=== PATIENT | female | born 1980 | race Caucasian/White ===

== ENCOUNTER 2016-12-11 07:38 | Day surgery (SDC) | payer OTHER ==
[~2016-12-11] VITALS: Ht 160 cm; Wt 85.7 kg
[2016-12-11] MEDS ORDERED: IV RINGERS,LACTATED 1000ML 1,000 ML IV SCH (07:55)
[2016-12-11] MEDS ORDERED: HYDROmorphone 2 MG/ML VIAL IV PRN (08:00)
[2016-12-11] MEDS ORDERED: ONDANSETRON PF 4 MG/2 ML VIAL. IV PRN (08:00)
[2016-12-11] MEDS ORDERED: PROCHLORPERAZINE 10 MG/2 ML VIAL. IV PRN (08:00)
[2016-12-11] MEDS ORDERED: MORPHINE SULFATE 4 MG/ML DISP.SYRIN. IV PRN (08:00)
[2016-12-11] MEDS ORDERED: fentaNYL PF VIAL 100 MCG/2 ML VIAL IV PRN ×2 (08:00)
[2016-12-11] MEDS ORDERED: LIDOCAINE 1% PF 2 ML VIAL. ID PRN (08:00)
[2016-12-11] MEDS ORDERED: IV RINGERS,LACTATED 1000ML 1,000 ML IV ONE (08:15)
[2016-12-11] MEDS ORDERED: MIDAZOLAM HCL/PF 2 MG/2 ML VIAL. ONE (08:41)
[2016-12-11] MEDS ORDERED: LIDOCAINE 2% PF Vial for OR 5 ML VIAL. ONE (08:42)
[2016-12-11] MEDS ORDERED: fentaNYL PF VIAL 100 MCG/2 ML VIAL ONE (08:42)
[2016-12-11] MEDS ORDERED: PROPOFOL 20 ML IV ONE (08:42)
[2016-12-11] MEDS ORDERED: DEXAMETHASONE SOD PHOS 20 MG/5 ML VIAL. ONE (08:42)
[2016-12-11] MEDS ORDERED: ONDANSETRON PF 4 MG/2 ML VIAL. ONE (08:42)
[2016-12-11] MEDS ORDERED: CLINDAMYCIN 900MG PREMIX 50 ML IV ONE (09:00)
[2016-12-11] MEDS ORDERED: SUCCINYLCHOLINE 200 MG/10 ML VIAL. ONE (09:03)
[2016-12-11] MEDS ORDERED: ROCURONIUM 100 MG/10 ML VIAL. ONE (09:04)
[2016-12-11 09:59] LABS: NEG OBC UR NEG; POS OBC UR POS
[2016-12-11] MEDS ORDERED: NEOSTIGMINE 10 MG/10 ML VIAL. ONE (10:14)
[2016-12-11] MEDS ORDERED: KETOROLAC 30 MG/ML INJ FOR OR. INJ ONE (10:14)
[2016-12-11] MEDS ORDERED: GLYCOPYRROLATE 1 MG/5 ML VIAL. ONE (10:15)
--- NOTE | 2016-12-11 10:40 | PDOC ---
BRIEF OPERATIVE NOTE Pre-Op Diagnosis Sterilization Post-Op Diagnosis Same Procedure Performed Essure Surgeon Dr. Mccall Anesthesia Type: General Blood Loss less than 5 ml Specimens Obtained none Findings nml size uterus, nml fallopian tube ostia Complications none BRIE MCCALL Jr, MD Dec 11, 2016 10:40
--- NOTE | 2016-12-11 10:41 | DISCH ---
DISCHARGE INSTRUCTIONS Condition on Discharge Condition on Discharge: Stable Activity After Discharge Activity Instructions for Disc: Activity as tolerated Lifting Instructions after Dis: No heavy lifting Driving Instructions after Dis: Do not drive today Diet after Discharge Diet after Discharge: Regular Contacting the [facility] after DC Call your doctor for: Concerns you may have Follow-Up Follow up with: Dr. Mccall in 1 week. BRIE MCCALL Jr, MD Dec 11, 2016 10:41
[2016-12-11] MEDS ORDERED: DESFLURANE 61 TO 120 MINUTES IH ONE (10:51)
--- NOTE | 2016-12-11 10:55 | OP ---
DATE OF SURGERY: PREOPERATIVE DIAGNOSIS: Sterilization. POSTOPERATIVE DIAGNOSIS: Sterilization. PROCEDURE: Essure. SURGEON: Brie Mccall MD ANESTHESIA: GETA. ESTIMATED BLOOD LOSS: Less than 5 mL. COMPLICATIONS: None. FINDINGS: Normal size uterus, normal fallopian tube ostia bilaterally. SUMMARY: A 36-year-old female, desires permanent sterilization. She was counseled on the Essure procedure risks, benefits and expectations and voiced a clear understanding to proceed. DESCRIPTION OF PROCEDURE: The patient was taken to surgery suite and placed in dorsal lithotomy position. She was prepped with Betadine solution and draped in a sterile fashion. After adequate anesthesia, weighted speculum and curved [place] placed vaginally and anterior lip of the cervix grasped with a single-tooth tenaculum, the cervix was dilated with Barbie dilators up to size 6, the hysteroscope was then placed. The left fallopian tube and ostia was identified. She Essure device was placed in normal fashion with 3 coils on the external fallopian tube ostia. Same process took place with right fallopian tube with 3 coils demonstrated on the external fallopian tube ostia. The hysteroscope was removed. Single-tooth tenaculum and weighted speculum were removed. The patient tolerated the procedure well and was taken to recovery room in stable condition. Sponge count correct x 3. BRIE MCCALL MD DR: VANI/lucia JOB#: [id number] / [id number]
[2016-12-11 11:37] VITALS: BP 146/76
== END 2016-12-11 12:08 | disposition home or self-care (01) ==
LOC: SURG 07:38
PROVIDERS: ATTEND Obstetrics & Gynecology
DX: Z30.2 Encounter for sterilization (principal); E66.9 Obesity, unspecified; Z68.38 Body mass index [BMI] 38.0-38.9, adult; Z72.0 Tobacco use; Z88.0 Allergy status to penicillin
CPT/HCPCS: 58565; 81025; J0330; J1100; J1885; J2250; J2405; J2704; J2710; J3010; J3490; A4264; J2001

== ENCOUNTER → 2017-04-09 | Outpatient (CLI) | payer OTHER ==
[2017-04-09 09:50] LABS: NEG OBC UR NEG; POS OBC UR POS; U PREG PATIENT NEGATIVE (NEG)
[2017-04-09] MEDS: IOHEXOL 300 MG/ML 100ML VIAL. INT UTERIN (11:02)
== END | disposition home or self-care (01) ==
LOC: RAD 15:42
DX: N93.8 Other specified abnormal uterine and vaginal bleeding (principal)
CPT/HCPCS: 58340; 74740; 81025; Q9967